=== PATIENT | female | born 1950 | race Caucasian/White ===

== ENCOUNTER → 2024-04-06 15:53 | Outpatient (REF) | payer MEDICARE, OTHER, SELFPAY | LOC: CLAB 15:53 | PROVIDERS: ATTENDING PHYSICIAN Surgery | DX: R22.9 Localized swelling, mass and lump, unspecified (principal) | CPT/HCPCS: 88304 ==

== ENCOUNTER 2024-07-21 06:21 | Day surgery (SDC) | payer MEDICARE, OTHER, SELFPAY | END 2024-07-21 14:10 | disposition home or self-care (01) | LOC: GI 06:21 | PROVIDERS: ATTENDING PHYSICIAN Internal Medicine Gastroenterology; FAMILY PHYSICIAN Internal Medicine | DX: Z12.11 Encounter for screening for malignant neoplasm of colon (principal); K63.89 Other specified diseases of intestine; K64.8 Other hemorrhoids; K57.30 Diverticulosis of large intestine without perforation or abscess without bleeding; R12 Heartburn; K44.9 Diaphragmatic hernia without obstruction or gangrene; K22.89 Other specified disease of esophagus; K31.89 Other diseases of stomach and duodenum; D12.4 Benign neoplasm of descending colon; D12.3 Benign neoplasm of transverse colon; K31.A0 Gastric intestinal metaplasia, unspecified; Z98.0 Intestinal bypass and anastomosis status; Z86.0101 Personal history of adenomatous and serrated colon polyps; Z80.0 Family history of malignant neoplasm of digestive organs | CPT/HCPCS: 45385; 43239; 88305 ==